=== PATIENT | male | born 1995 | race African-American/Black ===

== ENCOUNTER 2025-05-23 09:35 | Inpatient (IN) ==
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
[2025-05-23 09:56] LABS: MEAN PLATELET VOLUME 7.8 fL (7.4-11.0); RED CELL DISTRIBUTION WIDTH 13.6 % (11.6-16.5)
[2025-05-23 10:12] LABS: COR NA(FOR HYPERGLY) 142 mmol/L (136-145); CREATININE 1.18 mg/dL (0.70-1.30); eGFR NON BLACK RACES > 60 (>60)
--- NOTE | 2025-05-23 10:14 | RAD ---
EXAM: CHEST, 1 VIEW HISTORY: fell; COMPARISON: None Moderate left pneumothorax measures up to 2.1 cm along the lateral apical pleural space. Unremarkable cardiac silhouette. No focal consolidation or large pleural effusion. IMPRESSION: Moderate left pneumothorax. THIS IS AN ELECTRONICALLY VERIFIED FINAL REPORT 05/23/2025 10:11 AM - Electronically signed by MD MAVERICK De León
[2025-05-23] MEDS: ADACEL or BOOSTRIX TDaP VACCINE IM ONE (10:28)
[2025-05-23] MEDS: NS 1,000 ML IV 1,000 ML IV SCH (11:44)
[2025-05-23] MEDS: NORCO 5/325 MG TAB PO PRN (12:54)
[2025-05-23] MEDS: ATIVAN TAB 1 MG PO ONE (13:20)
[2025-05-23] MEDS: NORCO 5/325 MG TAB PO ONE (13:20)
[2025-05-23 13:54] VITALS: BMI 18.3
--- NOTE | 2025-05-23 17:06 | RAD ---
EXAM: CHEST, 1 VIEW HISTORY: Pneumothorax COMPARISON: 2024 at 9:40 a.m.. TECHNIQUE: Chest radiographic imaging, AP portable projection, 1 image FINDINGS: No cardiomegaly. No focal airspace disease. No pleural effusion. Enlarging left pneumothorax, approximately 40%, without midline shift. Pleural margin currently measures approximately 2.5 cm from the thoracic wall and previously measured 1.9 cm. No acute osseous abnormality. IMPRESSION: Enlarging left pneumothorax, approximately 40%, without midline shift. Pleural margin currently measures approximately 2.5 cm from the thoracic wall and previously measured 1.9 cm. THIS IS AN ELECTRONICALLY VERIFIED FINAL REPORT 05/23/2025 5:02 PM - Electronically signed by Henok Leal MD
[2025-05-24 05:34] LABS: MEAN PLATELET VOLUME 8.0 fL (7.4-11.0); RED CELL DISTRIBUTION WIDTH 13.7 % (11.6-16.5)
[2025-05-24 05:48] LABS: COR CA(FOR HYPOALB) 9.0 mg/dL (8.5-10.1); CREATININE 0.88 mg/dL (0.70-1.30); eGFR NON BLACK RACES > 60 (>60)
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
[2025-05-24] MEDS: MAG-OX TAB PO SCH (11:55)
[2025-05-24] MEDS ORDERED: CONSULT PHARMACY - POTASSIUM & MAGNESIUM XX SCH (12:00)
[2025-05-24 15:38] LABS: APPEARANCE,URINE CLEAR (CLEAR); SQUAMOUS EPITHELIAL CELL,UR NEGATIVE /HPF (NEGATIVE)
--- NOTE | 2025-05-24 18:15 | RAD ---
EXAM: CHEST, 1 VIEW HISTORY: pneumothorax; COMPARISON: [facility] chest radiograph same day 6:29 a.m. TECHNIQUE: 1 frontal view of the chest FINDINGS: There is a elicfkse-[id number] left pneumothorax present which is similar in size to the comparison study performed the same day at 6:29 a.m.. Airspace opacities are visible in the left lower lobe which could represent atelectasis, pneumonia or pulmonary contusion. The right lung is grossly clear. No appreciable mediastinal shift. IMPRESSION: Persistent tfyghcku-yz-[id number] left pneumothorax. No measurable interval change. THIS IS AN ELECTRONICALLY VERIFIED FINAL REPORT 05/24/2025 6:12 PM - Electronically signed by Wing Kirkpatrick MD
[2025-05-25 05:01] LABS: MEAN PLATELET VOLUME 8.3 fL (7.4-11.0); RED CELL DISTRIBUTION WIDTH 13.6 % (11.6-16.5)
[2025-05-25 05:13] LABS: COR CA(FOR HYPOALB) 9.2 mg/dL (8.5-10.1); CREATININE 0.74 mg/dL (0.70-1.30); eGFR NON BLACK RACES > 60 (>60)
--- NOTE | 2025-05-25 06:49 | RAD ---
EXAM: CHEST, 1 VIEW HISTORY: left sided pneumothorax; COMPARISON: 05/24/2025 FINDINGS: br.br.br disease. Possible slightly decreasing left-sided pneumothorax. No acute osseous abnormality. IMPRESSION: Slight decrease in left-sided pneumothorax. THIS IS AN ELECTRONICALLY VERIFIED FINAL REPORT 05/25/2025 6:46 AM - Electronically signed by Jelani Lane MD
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
[2025-05-26 04:04] VITALS: RESP 19
[2025-05-26 05:48] LABS: MEAN PLATELET VOLUME 8.3 fL (7.4-11.0); RED CELL DISTRIBUTION WIDTH 13.7 % (11.6-16.5)
[2025-05-26 05:56] LABS: COR CA(FOR HYPOALB) 9.3 mg/dL (8.5-10.1); CREATININE 0.71 mg/dL (0.70-1.30); eGFR NON BLACK RACES > 60 (>60)
[2025-05-26] MEDS ORDERED: CONSULT PHARMACY - POTASSIUM & MAGNESIUM XX SCH (06:00)
--- NOTE | 2025-05-26 06:44 | RAD ---
EXAM: CHEST, 1 VIEW HISTORY: left side Pneumothorax; left side Pneumothorax COMPARISON: 05/25/2025 FINDINGS: r not changed significantly from yesterday. Very slight atelectasis in the left lung base is stable. No significant abnormality in the right lung. Heart size is normal. The bones are unremarkable. IMPRESSION: 1. Stable small left pneumothorax THIS IS AN ELECTRONICALLY VERIFIED FINAL REPORT 05/26/2025 6:41 AM - Electronically signed by Rigoberto Singer MD
[2025-05-26] MEDS: MAG-OX TAB PO SCH (08:26)
[2025-05-26] MEDS: K-DUR TAB 20 MEQ PO SCH (08:26)
[2025-05-26 08:31] VITALS: BP 103/57; TEMP 98.7; O2SAT 98
[2025-05-26 08:53] VITALS: PULSE 86
== END 2025-05-26 12:05 | disposition home or self-care (01) | DRG 201 ==
LOC: ER 09:35 → ICU 10:44 → MED/SURG 05-25 13:49
PROVIDERS: ADMIT Surgery; ATTEND Surgery
DX: D64.89 Other specified anemias; R06.02 Shortness of breath; Y92.89 Other specified places as the place of occurrence of the external cause; R79.89 Other specified abnormal findings of blood chemistry; S21.212A Laceration without foreign body of left back wall of thorax without penetration into thoracic cavity, initial encounter; J93.83 Other pneumothorax; R07.89 Other chest pain; W17.89XA Other fall from one level to another, initial encounter; Y93.02 Activity, running; E83.51 Hypocalcemia; R73.09 Other abnormal glucose; E83.42 Hypomagnesemia